=== PATIENT | male | born 1940 | race Caucasian/White ===

== ENCOUNTER 2021-05-28 14:49 | Observation (INO) ==
[2021-05-28] MEDS ORDERED: Ondansetron ODT 4 MG TAB.RAPDIS SL PRN (17:20)
[2021-05-28] MEDS ORDERED: Naloxone 0.4 MG/ML INJ IVP PRN (17:20)
[2021-05-28] MEDS ORDERED: MOM Conc 10 ML UD.LIQ PO PRN (17:20)
[2021-05-28] MEDS ORDERED: Mag Hydrox/Al Hydrox/Simeth 30 ML UDC PO PRN (17:20)
[2021-05-28] MEDS ORDERED: Melatonin 3 MG TABLET PO PRN (17:20)
[2021-05-28] MEDS ORDERED: Gadolinium Contrast Agent (WT Based) IV PRN (17:25)
[2021-05-28] MEDS ORDERED: D5% in Water 1,000 ML IVC PRN (17:26)
[2021-05-28] MEDS ORDERED: *HR* Dextrose 50 % in Water (Syg) 50 ML SYRINGE IVP PRN (17:26)
[2021-05-28] MEDS ORDERED: Dextrose Gel 15 GM/37.5 ML TUBE PO PRN ×2 (17:26)
[2021-05-28] MEDS ORDERED: *HR* LORazepam 2 MG/ML VIAL IVP ONE (17:40)
[2021-05-28] MEDS ORDERED: 0.9 % Sodium Chloride 1,000 ML IVC SCH (17:45)
[2021-05-28] MEDS: Insulin LISPRO 300 UNITS/3 ML VIAL SUBQ SCH ×2 (17:53→22:23)
[2021-05-28] MEDS ORDERED: GADOBUTROL 30 MMOL/30 ML VIAL IVP ONE (19:14)
[2021-05-28] MEDS: Nicotine 21 MG PATCH.TD24 TD SCH (20:05)
[2021-05-29] MEDS: Piperacillin/Tazobactam 3.375 GM in 0.9 % Sodium Chloride Mini Bag 100 ML IVPB SCH ×3 (00:59→16:25)
[2021-05-29] MEDS ORDERED: Vancomycin 1,250 MG/262.5 ML IV.SOLN IVPB ONE (01:00)
[2021-05-29] MEDS: *HR* OxyCODONE Immed Rel 5 MG TABLET PO PRN ×3 (03:05→22:33)
[2021-05-29] MEDS ORDERED: Menthol 1 EACH LOZENGE PO PRN (03:44)
[2021-05-29 05:37] LABS: Hematocrit 41.9 % (37.5-50.1); Hemoglobin 13.5 g/dL (12.9-16.9); Mean Corpuscular HGB Conc 32.2 g/dL (31.6-35.5); Mean Corpuscular Hemoglobin 29.1 pg (28.0-33.3); Mean Corpuscular Volume 90.3 fL (83.0-100.0); Mean Platelet Volume 10.6 fL (9.4-12.4); Platelet Count 286 K/mcL (140-400); Red Blood Count 4.64 M/mcL (4.19-5.50); Red Cell Distribution Width 12.1 % (11.5-14.5); White Blood Count 13.3 K/mcL (4.3-11.1)
[2021-05-29] MEDS ORDERED: hydrALAZINE 10 MG TABLET PO PRN (05:48)
[2021-05-29] MEDS ORDERED: *HR* Enoxaparin 40 MG/0.4 ML SYRINGE SQ SCH (06:00)
[2021-05-29 06:17] LABS: Estimated Average Glucose 197 mg/dl; Hemoglobin A1C 8.5 %
[2021-05-29 07:11] LABS: Alanine Aminotransferase 16 Units/L (7-52); Albumin 3.8 g/dL (3.5-5.7); Albumin/Globulin Ratio 1.8 (1.1-2.2); Alkaline Phosphatase 57 Units/L (34-104); Aspartate Amino Transferase 16 Units/L (13-39); BUN/Creatinine Ratio 15 (6-26); Bilirubin,Total 0.7 mg/dL (0.3-1.0); Blood Urea Nitrogen 14 mg/dL (8-23); Calcium 8.9 mg/dL (8.6-10.3); Carbon Dioxide 18 mEq/L (23-29); Chloride 107 mEq/L (98-107); Globulin 2.1 g/dL (2.4-3.5); Glucose 129 mg/dL (70-105); Osmolality,Calculated 284 (280-300); Potassium 3.9 mEq/L (3.5-5.1); Sodium 136 mEq/L (136-145); Total Protein 5.9 g/dL (6.4-8.9); eGFR For African Americans > 60 (> 60); eGFR For Non-African Americans > 60 (> 60)
[2021-05-29] MEDS: Aspirin 325 MG TABLET PO SCH (08:04)
[2021-05-29] MEDS: predniSONE 5 MG TABLET PO SCH (08:04)
[2021-05-29] MEDS: lisinopriL 20 MG TABLET PO SCH (08:04)
[2021-05-29] MEDS: cloNIDine HCL 0.1 MG TABLET PO SCH ×2 (08:05→21:29)
[2021-05-29] MEDS: Nicotine 21 MG PATCH.TD24 TD SCH (08:05)
[2021-05-29] MEDS: Insulin LISPRO 300 UNITS/3 ML VIAL SUBQ SCH ×4 (08:07→21:28)
[2021-05-29 08:14] LABS: INR 2.6; Prothrombin Time 28.7 Seconds (9.4-12.1)
[2021-05-29 09:24] LABS: C-Reactive Protein 5 mg/L (Less than 10)
[2021-05-29 15:24] LABS: Adenovirus Not Detected (Not Detect); Bordetella Pertussis Not Detected (Not Detect); Chlamydophila pneumoniae Not Detected (Not Detect); Coronavirus 229E Not Detected (Not Detect); Coronavirus HKU1 Not Detected (Not Detect); Coronavirus NL63 Not Detected (Not Detect); Coronavirus OC43 Not Detected (Not Detect); Human Metapneumovirus Not Detected (Not Detect); Human Rhinovirus/Enterovirus Not Detected (Not Detect); Influenza A Subtype 2009 H1 Not Detected (Not Detect); Influenza B Not Detected (Not Detect); Mycoplasma pneumoniae Not Detected (Not Detect); Parainfluenza Virus 1 Not Detected (Not Detect); Parainfluenza Virus 2 Not Detected (Not Detect); Parainfluenza Virus 3 Not Detected (Not Detect); Parainfluenza Virus 4 Not Detected (Not Detect); Respiratory Syncytial Virus Not Detected (Not Detect); SARS-CoV-2 Not Detected (Not Detect)
[2021-05-29] MEDS ORDERED: Warfarin perPT PO PRN (18:00)
[2021-05-29] MEDS ORDERED: *HR* Warfarin 7.5 MG TABLET PO ONE (18:00)
[2021-05-30 00:31] LABS: Basophils % 0.3 %; Eosinophils # 0.1 K/mcL (0.0-0.6); Eosinophils % 0.6 %; Hematocrit 38.3 % (37.5-50.1); Hemoglobin 12.5 g/dL (12.9-16.9); Immature Granulocytes % 0.4 % (0-4); Lymphocytes % 22.9 %; Mean Corpuscular HGB Conc 32.6 g/dL (31.6-35.5); Mean Corpuscular Volume 88.9 fL (83.0-100.0); Mean Platelet Volume 11.1 fL (9.4-12.4); Monocytes # 0.7 K/mcL (0.0-1.3); Monocytes % 5.4 %; Neutrophils # 9.2 K/mcL (1.6-8.9); Platelet Count 328 K/mcL (140-400); Red Blood Count 4.31 M/mcL (4.19-5.50); Red Cell Distribution Width 12.1 % (11.5-14.5); Segmented Neutrophils % 70.4 %
[2021-05-30 00:38] LABS: INR 2.2; Prothrombin Time 24.7 Seconds (9.4-12.1)
[2021-05-30 00:43] LABS: BUN/Creatinine Ratio 14 (6-26); Blood Urea Nitrogen 15 mg/dL (8-23); Calcium 8.8 mg/dL (8.6-10.3); Carbon Dioxide 23 mEq/L (23-29); Chloride 106 mEq/L (98-107); Glucose 153 mg/dL (70-105); Osmolality,Calculated 284 (280-300); Potassium 4.1 mEq/L (3.5-5.1); Sodium 135 mEq/L (136-145); eGFR For African Americans > 60 (> 60); eGFR For Non-African Americans > 60 (> 60)
[2021-05-30] MEDS: Piperacillin/Tazobactam 3.375 GM in 0.9 % Sodium Chloride Mini Bag 100 ML IVPB SCH ×2 (02:08→07:47)
[2021-05-30] MEDS: Insulin LISPRO 300 UNITS/3 ML VIAL SUBQ SCH (07:46)
[2021-05-30] MEDS: predniSONE 5 MG TABLET PO SCH (07:46)
[2021-05-30] MEDS: lisinopriL 20 MG TABLET PO SCH (07:46)
[2021-05-30] MEDS: Nicotine 21 MG PATCH.TD24 TD SCH (07:55)
[2021-05-30] MEDS: *HR* OxyCODONE Immed Rel 5 MG TABLET PO PRN (07:58)
[2021-05-30] MEDS ORDERED: cloNIDine HCL 0.1 MG TABLET PO SCH ×2 (09:00→21:00)
[2021-05-30] MEDS: Aspirin 325 MG TABLET PO SCH (09:03)
[2021-05-30 10:01] VITALS: BP 112/63; PULSE 63; TEMP 97.6; O2SAT 96
[2021-05-30] MEDS ORDERED: *HR* Warfarin 7.5 MG TABLET PO ONE (18:00)
== END 2021-05-30 12:57 | disposition home or self-care (01) ==
LOC: 4WAOSI → SUATTDRO 16:43
PROVIDERS: ADMIT Hospitalist; ATTEND Internal Medicine

== ENCOUNTER 2021-07-07 04:25 | Observation (INO) ==
[2021-07-07] MEDS ORDERED: Naloxone 0.4 MG/ML INJ IVP PRN (09:42)
[2021-07-07] MEDS ORDERED: Melatonin 3 MG TABLET PO PRN (09:42)
[2021-07-07] MEDS ORDERED: *HR* Heparin 5,000 UNIT/ML VIAL IVP PRN (10:16)
[2021-07-07] MEDS ORDERED: Perflutren Lipid Microsphere 1.3 ML in 0.9 % Sodium Chloride 8.7 ML IVP PRN (10:46)
[2021-07-07] MEDS ORDERED: *HR* Dextrose 50 % in Water (Syg) 50 ML SYRINGE IVP PRN (10:47)
[2021-07-07] MEDS ORDERED: Dextrose Gel 15 GM/37.5 ML TUBE PO PRN ×2 (10:47)
[2021-07-07] MEDS ORDERED: D5% in Water 1,000 ML IVC PRN (10:47)
[2021-07-07] MEDS: Heparin 25,000UNIT/250ML 1/2NS 25,000 UNIT/250 ML IV.SOLN IVC SCH (10:48)
[2021-07-07 10:49] LABS: Prothrombin Time 21.7 Seconds (9.4-12.1)
[2021-07-07 10:51] LABS: Heparin anti-factor XA UFH 0.04 IU/mL (0.30-0.70)
[2021-07-07 11:02] LABS: Alanine Aminotransferase 29 Units/L (7-52); Albumin 4.4 g/dL (3.5-5.7); Albumin/Globulin Ratio 1.6 (1.1-2.2); Alkaline Phosphatase 67 Units/L (34-104); Aspartate Amino Transferase 41 Units/L (13-39); BUN/Creatinine Ratio 20 (6-26); Blood Urea Nitrogen 23 mg/dL (8-23); C-Reactive Protein 17 mg/L (Less than 10); Calcium 9.8 mg/dL (8.6-10.3); Carbon Dioxide 24 mEq/L (23-29); Chloride 102 mEq/L (98-107); Globulin 2.7 g/dL (2.4-3.5); Glucose 205 mg/dL (70-105); Magnesium 2.1 mg/dL (1.6-2.6); Osmolality,Calculated 292 (280-300); Phosphorous 3.5 mg/dL (2.7-4.5); Potassium 4.2 mEq/L (3.5-5.1); Sodium 136 mEq/L (136-145); Total Protein 7.1 g/dL (6.4-8.9); eGFR For African Americans > 60 (> 60); eGFR For Non-African Americans > 60 (> 60)
[2021-07-07 11:08] LABS: Troponin I 4.43 ng/mL (< 0.04)
[2021-07-07] MEDS ORDERED: Gadolinium Contrast Agent (WT Based) IV PRN (11:17)
[2021-07-07] MEDS: Ampicillin/Sulbactam 3,000 MG in 0.9 % Sodium Chloride Mini Bag 100 ML IVPB SCH ×2 (11:31→14:56)
[2021-07-07] MEDS: Insulin LISPRO 300 UNITS/3 ML VIAL SUBQ SCH ×2 (11:32→15:27)
[2021-07-07] MEDS: lisinopriL 20 MG TABLET PO SCH (11:32)
[2021-07-07 12:06] LABS: Adenovirus Not Detected (Not Detect); Bordetella Pertussis Not Detected (Not Detect); Chlamydophila pneumoniae Not Detected (Not Detect); Coronavirus 229E Not Detected (Not Detect); Coronavirus HKU1 Not Detected (Not Detect); Coronavirus NL63 Not Detected (Not Detect); Coronavirus OC43 Not Detected (Not Detect); Human Metapneumovirus Not Detected (Not Detect); Human Rhinovirus/Enterovirus Not Detected (Not Detect); Influenza A Subtype 2009 H1 Not Detected (Not Detect); Influenza B Not Detected (Not Detect); Mycoplasma pneumoniae Not Detected (Not Detect); Parainfluenza Virus 1 Not Detected (Not Detect); Parainfluenza Virus 2 Not Detected (Not Detect); Parainfluenza Virus 3 Not Detected (Not Detect); Parainfluenza Virus 4 Not Detected (Not Detect); Respiratory Syncytial Virus Not Detected (Not Detect); SARS-CoV-2 Not Detected (Not Detect)
[2021-07-07] MEDS: Metoprolol XL (24 HR) Succ 50 MG TAB.ER.24H PO SCH (14:44)
[2021-07-07] MEDS: *HR* OxyCODONE/APAP 5/325 TABLET PO PRN (15:27)
[2021-07-07] MEDS: *HR* Heparin 5,000 UNIT/ML VIAL IVP PRN (18:02)
[2021-07-07] MEDS ORDERED: Insulin LISPRO 300 UNITS/3 ML VIAL SUBQ SCH (21:00)
[2021-07-07] MEDS ORDERED: Ampicillin/Sulbactam 3,000 MG in 0.9 % Sodium Chloride Mini Bag 100 ML IVPB SCH (21:00)
[2021-07-08 00:45] LABS: Basophils # 0.1 K/mcL (0.0-0.2); Basophils % 0.5 %; Eosinophils # 0.3 K/mcL (0.0-0.6); Eosinophils % 1.4 %; Hematocrit 36.5 % (37.5-50.1); Hemoglobin 12.1 g/dL (12.9-16.9); Immature Granulocytes % 0.5 % (0-4); Lymphocytes # 3.5 K/mcL (0.6-4.6); Mean Corpuscular HGB Conc 33.2 g/dL (31.6-35.5); Mean Corpuscular Hemoglobin 29.6 pg (28.0-33.3); Mean Corpuscular Volume 89.2 fL (83.0-100.0); Mean Platelet Volume 11.6 fL (9.4-12.4); Monocytes # 1.2 K/mcL (0.0-1.3); Monocytes % 6.4 %; Neutrophils # 13.3 K/mcL (1.6-8.9); Platelet Count 285 K/mcL (140-400); Red Blood Count 4.09 M/mcL (4.19-5.50); Red Cell Distribution Width 12.9 % (11.5-14.5); Segmented Neutrophils % 72.2 %; White Blood Count 18.5 K/mcL (4.3-11.1)
[2021-07-08] MEDS: *HR* Heparin 5,000 UNIT/ML VIAL IVP PRN (01:04)
[2021-07-08 01:08] LABS: BUN/Creatinine Ratio 23 (6-26); Blood Urea Nitrogen 25 mg/dL (8-23); Carbon Dioxide 25 mEq/L (23-29); Chloride 102 mEq/L (98-107); Glucose 215 mg/dL (70-105); Osmolality,Calculated 289 (280-300); Potassium 3.7 mEq/L (3.5-5.1); Sodium 134 mEq/L (136-145); eGFR For African Americans > 60 (> 60); eGFR For Non-African Americans > 60 (> 60)
[2021-07-08] MEDS ORDERED: Ondansetron ODT 4 MG TAB.RAPDIS SL PRN (04:42)
[2021-07-08] MEDS: lisinopriL 20 MG TABLET PO SCH (07:58)
[2021-07-08] MEDS: *HR* OxyCODONE/APAP 5/325 TABLET PO PRN (07:58)
[2021-07-08] MEDS: Heparin 25,000UNIT/250ML 1/2NS 25,000 UNIT/250 ML IV.SOLN IVC SCH (07:59)
[2021-07-08] MEDS: Metoprolol XL (24 HR) Succ 50 MG TAB.ER.24H PO SCH (07:59)
[2021-07-08] MEDS: Insulin LISPRO 300 UNITS/3 ML VIAL SUBQ SCH ×2 (07:59→12:16)
[2021-07-08] MEDS ORDERED: Aspirin 81 MG TAB.CHEW PO SCH (09:00)
[2021-07-08 12:14] VITALS: BP 101/53; PULSE 67; TEMP 97; O2SAT 94
== END 2021-07-08 16:03 | disposition home health service (06) ==
LOC: 2ANU
PROVIDERS: ADMIT Internal Medicine; ATTEND Internal Medicine